=== PATIENT | male | born 2000 | race African-American/Black ===

== ENCOUNTER 2021-10-08 09:09 | Emergency (ER) | payer BC, SELFPAY ==
[2021-10-08 09:15] VITALS: BP 119/65; PULSE 90; RESP 18; TEMP 36.1; O2SAT 98
--- NOTE | 2021-10-08 09:22 | ED.NAVMDI ---
HPI - Nausea/Vomiting/Diarrhea General Chief complaint: Nausea/Vomiting/Diarrhea Stated complaint: n/v Time Seen by Provider: 10/08/21 09:14 Source: patient Mode of arrival: ambulatory Limitations: no limitations History of Present Illness HPI Narrative: Patient is a 21-year-old male who presents to the ED with report of nausea, vomiting, diarrhea. Patient reports having symptoms for the past 2 days. Symptoms started more with diarrhea but he is now experiencing more vomiting. No significant blood in stool or vomit. He also reports having intermittent upper abdominal pain and a hot/cold feeling. Denies any documented fever. Denies sore throat, congestion, cough, runny nose, chest pain, difficulty breathing, headache. Patient has not tried anything for his pain or symptoms. He does mention he was recently exposed to several family members who tested positive for COVID-19. Related Data Allergies Allergy/AdvReac Type Severity Reaction Status Date / Time No Known Allergies Allergy Verified 10/08/21 09:20 Review of Systems Review of Systems: CONSTITUTIONAL: Reports chills/sweats. Denies documented fever. ENT: Denies rhinorrhea, congestion, sore throat. CARDIOVASCULAR: Denies chest pain. RESPIRATORY: Denies cough or dyspnea. GASTROINTESTINAL: Reports upper abdominal pain, nausea, vomiting, and diarrhea. Denies rectal bleeding, hematemesis. GENITOURINARY: Denies dysuria or hematuria. MUSCULOSKELETAL: Denies myalgia. NEUROLOGIC: Denies headache. [facility] Past Medical History Medical History (Updated 10/09/21 @ 00:00 by Ada Aguiar) No pertinent past medical history Surgical History Surgical History (Updated 10/08/21 @ 09:27 by Karissa Siddiqi PA-C) No pertinent past surgical history Social History Social History (Updated 10/08/21 @ 09:27 by Karissa Siddiqi PA-C) Smoking status: Current every day smoker Tobacco type: cigars Exam Narrative: GENERAL: Well appearing, well-nourished, non-toxic, in no acute distress. HEAD: Normocephalic, atraumatic. NECK: Supple. No adenopathy, no masses. RESPIRATORY: Airway patent, respirations nonlabored. Clear to auscultation bilaterally, no rales, rhonchi, wheezing. CARDIOVASCULAR: Regular rate and rhythm without murmurs, rubs, or gallops. Radial pulses 2+ and equal bilaterally. ABDOMINAL: Soft, minimal tenderness to palpation in epigastric region, nondistended, no hepatosplenomegaly. Normoactive BS. MUSCULOSKELETAL: Moves all extremities. Strength/ROM intact without gross deformities or TTP. SKIN: Warm, dry, normal color. No rashes. NEURO: A&O X3. Speech clear. Cranial nerves II-XII grossly intact. Steady gait. No ataxic movements. PSYCHIATRIC: Appropriate mood and affect. Normal interaction. Course Vital Signs Vital signs: Vital Signs Temperature 97.0 F L 10/08/21 09:15 Pulse Rate 90 10/08/21 09:15 Respiratory Rate 18 10/08/21 09:15 Blood Pressure 119/65 10/08/21 09:15 Pulse Oximetry 98 10/08/21 09:15 Oxygen Delivery Room Air 10/08/21 09:15 Temperature 97.0 F L 10/08/21 09:15 Pulse Rate 65 10/08/21 12:00 Respiratory Rate 13 10/08/21 12:00 Blood Pressure 121/74 10/08/21 12:00 Pulse Oximetry 99 10/08/21 12:00 Oxygen Delivery Room Air 10/08/21 09:15 MDM - Nausea/Vomiting/Diarrhea MDM Narrative Medical decision making narrative: Patient presented to ED with 2-day history of N/V/D. Vital signs stable upon arrival. Afebrile. Recent exposure to COVID. COVID and influenza negative today in the ED. No significant laboratory abnormality. No leukocytosis or anemia or electrolyte abnormality. Urine without signs of infection but did show positive ketones. Patient given 2 L of fluid, Zofran, Tylenol and felt much better. Abdominal pain and nausea resolved. Patient's abdomen is soft without significant pain or signs of surgical abdomen on serial exams. Patient's appetite returned in the ED and he was able to tolerate p.o.
[2021-10-08] MEDS: SODIUM CHLORIDE 0.9% IV 1,000 ML 999 ML IV CONT ×2 (09:29→11:34)
[2021-10-08] MEDS: ONDANSETRON INJ 4 MG/2 ML VIAL IV PUSH (09:31)
[2021-10-08 09:33] LABS: Basophils Percent Auto 0.4 % (0.2-1.2); Hematocrit 45.9 % (42.0-52.0); Hemoglobin 15.4 g/dL (14.0-18.0); Immature Granulocyte Absolute 0.01 K/mm3 (0.00-0.031); Immature Granulocyte Percent A 0.2 % (0-0.5); Lymphocytes Absolute Auto 0.94 K/mm3 (0.9-3.2); Lymphocytes Percent Auto 17.2 % (18.3-44.2); Mean Corpuscular HGB Conc 33.6 g/dl (32-36); Mean Corpuscular Hemoglobin 28.8 pg (26-34); Mean Corpuscular Volume 85.8 fl (80-100); Mean Platelet Volume 10.8 fl (7.4-10.4); Monocytes Absolute Auto 0.4 K/mm3 (0.1-0.6); Monocytes Percent Auto 7.3 % (2.6-8.5); Neutrophils Absolute Auto 4.1 K/mm3 (1.3-6.7); Neutrophils Percent Auto 74.9 % (45.5-73.1); Platelet Count Result 199 k/mm3 (150-375); Red Blood Count 5.35 M/mm3 (4.6-6.20); Red Cell Distribution Width 12.6 % (11.5-14.5); White Blood Count 5.5 K/mm3 (4.5-10.0)
[2021-10-08 09:51] LABS: Alanine Aminotransferase 13 U/L (6-50); Albumin Level 4.8 g/dL (3.5-5.1); Alkaline Phosphatase 55 U/L (38-126); Anion Gap 10 mmol/L (8-16); Aspartate Amino Transferase 38 U/L (17-59); Bilirubin,Total 1.2 mg/dL (0.2-1.3); Blood Urea Nitrogen 15 mg/dL (9-20); Calcium 9.3 mg/dL (8.4-10.2); Carbon Dioxide 24 mmol/L (22-30); Chloride 107 mmol/L (98-107); Estimated CRCL calculation 110 ml/min; Estimated Glomerular Filt Rate > 60; Glucose 131 mg/dL (65-110); Lipase 23 U/L (23-300); Potassium 3.9 mmol/L (3.4-5.0); Sodium 141 mmol/L (137-145)
[2021-10-08 10:12] LABS: Influenza A QL RT-PCR Negative (Negative); Influenza B QL RT-PCR Negative (Negative); SARS-CoV-2 RNA PCR Negative
[2021-10-08 10:29] LABS: Appearance Urine Clear (Clear); Bilirubin Urine 2+ (Negative); Blood Urine Negative (Negative); Glucose Urine UA Negative (Negative); Ketones Urine 4+ mg/dL (Negative); Leukocyte Esterase Ur Negative LEU/UL (Negative); Nitrate Urine Negative (Negative); Protein Urine 1+ mg/dL (Negative); pH Urine 6.5 (5.0-9.0)
[2021-10-08 10:38] LABS: Mucus Urine Heavy /lpf; RBC Urine 0-2 /hpf (0-2); Squamous Epithelial Cell Urine Occasional /hpf (Few); WBC Urine 0-3 /hpf
[2021-10-08 10:41] LABS: Add Urine Microscopic? YES; Color Urine Dark Yellow (Yellow)
[2021-10-08 12:00] VITALS: BP 121/74; PULSE 65; RESP 13; O2SAT 99
== END 2021-10-08 13:07 | disposition home or self-care (01) ==
PROVIDERS: Physician Assistant; Emergency Provider Emergency Medicine
DX: R11.2 Nausea with vomiting, unspecified (principal); F17.200 Nicotine dependence, unspecified, uncomplicated; Z20.822 Contact with and (suspected) exposure to COVID-19
CPT/HCPCS: 36415; 80053; 81001; 83690; 85025; 87502; 96361; 96374; 96375; 99284; C9803; J0131; J2405; J7030; U0003; U0005